=== PATIENT | male | born 1960 | race Caucasian/White ===

== ENCOUNTER 2017-11-18 06:58 | Emergency (ER) | payer OTHER ==
[~2017-11-18] VITALS: Ht 177.8 cm; Wt 82.1 kg
[2017-11-18 07:05] VITALS: TEMP 36.5; Ht 177.8 cm; Wt 82.1 kg
[2017-11-18] MEDS ORDERED: ALLO100T PO (07:28)
[2017-11-18] MEDS ORDERED: METO25TA3 PO (07:28)
[2017-11-18] MEDS ORDERED: ADVIN25/60 INH (07:28)
[2017-11-18] MEDS ORDERED: CLOP1TAB5 PO (07:28)
[2017-11-18] MEDS ORDERED: LPT10 PO (07:28)
[2017-11-18] MEDS ORDERED: TRAM-10 PO (07:28)
[2017-11-18] MEDS ORDERED: LISI-729 PO (07:28)
[2017-11-18] MEDS ORDERED: SPRIN/30 INH (07:28)
[2017-11-18] MEDS: ACETAMINOPHEN 500 MG TAB PO STA (07:37)
[2017-11-18] MEDS: KETOROLAC TROMETHAMINE 60 MG/2 ML VIAL IM STA (07:38)
--- NOTE | 2017-11-18 08:47 | DIAGNOSTIC IMAGING REPORT ---
CT OF THE HEAD WITHOUT CONTRAST CLINICAL HISTORY: YOU, neck/thoracic back/rib pain following trauma. COMPARISON STUDY: No previous studies for comparison. TECHNIQUE: Helical axial images of the head were obtained without IV contrast. Automated exposure control was utilized for the study. A dose lowering technique was utilized adhering to the principles of ALARA. FINDINGS: No acute intracranial hemorrhage, midline shift or mass effect is present. Ventricular system is normal. Basilar cisterns are patent. There are no extra-axial collections. White matter hypodensities are nonspecific but suggest small vessel disease. There is bilateral basal ganglia calcification. There is no calvarial fracture. Visualized portions of the sinuses and mastoid air cells are clear. Right nasal bone deformity is likely chronic. IMPRESSION: No acute intracranial findings. Electronically signed by: Duncan Collins M.D. 11/18/2017 8:46 AM Dictated Date/Time: 11/18/2017 8:43 AM
--- NOTE | 2017-11-18 08:48 | DIAGNOSTIC IMAGING REPORT ---
THORACIC SPINE WITHOUT CT DOSE: 1528.67 mGy.cm HISTORY: Pain YOU, neck/thoracic back/rib pain TECHNIQUE: Multiaxial CT images of the thoracic spine were performed and reformatted in the sagittal and coronal plane without the use of contrast. A dose lowering technique was utilized adhering to the principles of ALARA. COMPARISON: None. FINDINGS: No fractures. No subluxation. Paraspinal soft tissues are unremarkable. Moderate degenerative disc changes throughout. IMPRESSION: No fractures within the thoracic spine. Moderate degenerative disc change throughout. The above report was generated using voice recognition software. It may contain grammatical, syntax or spelling errors. Electronically signed by: King Toussaint M.D. 11/18/2017 8:47 AM Dictated Date/Time: 11/18/2017 8:45 AM
--- NOTE | 2017-11-18 08:56 | DIAGNOSTIC IMAGING REPORT ---
CERVICAL SPINE W/O CT DOSE: HISTORY: Trauma YOU, neck/thoracic back/rib pain TECHNIQUE: Multiaxial CT images of the cervical spine were performed and reformatted in the sagittal and coronal plane without the use of contrast. A dose lowering technique was utilized adhering to the principles of ALARA. COMPARISON: None. FINDINGS: Vertebral stature is unremarkable. Grade 1 anterolisthesis of C3 on C4. Maximum anterolisthesis of 3 mm. This appears to be secondary to considerable degenerative change of the posterior facets which is noted primarily on the left. There is considerable fragmentation of the left lateral facet at this site. The margins are sclerotic suggesting that this is degenerative in nature. Degenerative disc changes noted throughout considered most prominent from C4 through C7. Prevertebral soft tissues are unremarkable. IMPRESSION: 1. No acute bony abnormality. 2. Grade 1 anterolisthesis of C3 and C4 felt to be secondary to severe degenerative changes of posterior elements. 3. Degenerative change of the vertebral endplates and intervertebral discs throughout. The above report was generated using voice recognition software. It may contain grammatical, syntax or spelling errors. Electronically signed by: King Toussaint M.D. 11/18/2017 8:55 AM Dictated Date/Time: 11/18/2017 8:47 AM
--- NOTE | 2017-11-18 08:58 | DIAGNOSTIC IMAGING REPORT ---
CT OF THE CHEST WITHOUT IV CONTRAST CLINICAL HISTORY: YOU, neck/thoracic back/rib pain following trauma. COMPARISON STUDY: No previous studies for comparison. TECHNIQUE: Axial images of the chest were obtained without IV contrast. Images were reviewed in the axial, sagittal, and coronal planes. IV contrast was not administered for this examination. A dose lowering technique was utilized adhering to the principles of ALARA. FINDINGS: Evaluation of the chest is suboptimal on this unenhanced exam. There is no mediastinal hematoma. The heart is mildly enlarged. There is extensive coronary artery calcification. There are several calcified mediastinal and right hilar lymph nodes which indicate a prior granulomatous process. There are several calcified pulmonary nodule. There is no pneumothorax or pulmonary contusion. There are mild groundglass opacities within the lungs with suspected mild emphysema. Dependent airspace opacities favor atelectasis. There are numerous old bilateral rib fractures. No acute rib fractures are identified on this exam. The appendix is normal. Visualized portions of the upper abdomen are unremarkable on this unenhanced exam. There is a calcified granuloma within the spleen. Thoracic spine CT will be reported separately. IMPRESSION: 1. No acute traumatic findings within the chest on unenhanced exam. 2. Numerous old bilateral rib fractures. No pneumothorax. 3. Mild cardiomegaly and extensive coronary artery calcification. 4. Mild emphysema. 5. Evidence for a prior granulomatous process. Electronically signed by: Duncan Collins M.D. 11/18/2017 8:56 AM Dictated Date/Time: 11/18/2017 8:46 AM
[2017-11-18] MEDS ORDERED: OXYC1TAB3 PO (09:24)
[2017-11-18] MEDS ORDERED: AMOX875T PO (09:24)
[2017-11-18 09:40] VITALS: BP 128/95; PULSE 74; O2SAT 97
--- NOTE | 2017-11-18 15:15 | EMERGENCY ROOM VISIT NOTE ---
History First contact with patient: 07:09 Chief Complaint: BACK PAIN Stated Complaint: BACK AND NECK PAIN History of Present Illness The patient is a 57 year old male who presents to the Emergency Room with complaints of a headache, neck pain and thoracic back pain. The patient reports that at approximately 11 AM yesterday, he suffered a work-related injury when a pipe stand collapsed onto his back. The patient reports that he was bent over when the stand collapsed, and a large 40-50 pound pipe fell onto his back. The patient reports significant pain with deep breathing. He denies any chest pain or true shortness of breath. The patient does report a history of chronic neck and lower back pain, but has never had any problems with his middle back. The patient is currently under the management of the [facility], taking tramadol for chronic pain relief. The patient also reports a history of multiple left lower rib fractures that required resection because of poor healing. The patient currently denies any burning sensation, paresthesias or numbness of the upper extremities, torso or legs. He rates his discomfort an 8 out of 10. Review of Systems 10 system review was performed and was negative except for pertinent positives and negatives as indicated in history of present illness Past Medical/Surgical History Medical Problems: (1) Emphysema of lung (2) Gout (3) Hypertension (4) Myocardial infarction Surgical Problems: (1) History of arthroscopy of shoulder (2) History of resection of rib Family History FH: diabetes mellitus FH: heart disease FH: hypertension FH: lung disease Social History Smoking Status: Current Every Day Smoker Alcohol Use: none Drug Use: none Marital Status: single, in relationship Housing Status: lives with significant other Occupation Status: employed Current/Historical Medications Scheduled Allopurinol (Zyloprim), 200 MG PO DAILY Amoxicillin & Pot Clavulanate (Augmentin 875-125 mg), 1 TAB PO BID Atorvastatin (Lipitor), Unknown Dose PO DAILY Clopidogrel Bisulfate (Plavix), 75 MG PO DAILY Fluticasone Prop/Salmeterol (Advair Diskus 250/50 60 Dose), 1 PUFF INH BID Lisinopril (Zestril), 2.5 MG PO DAILY Metoprolol Succ (Toprol Xl) (Toprol-Xl), Unknown Dose PO DAILY Tiotropium [place] (Spiriva Handihaler), 1 CAP INH DAILY Scheduled PRN Oxycodone Ir (Roxicodone Ir), 1-2 TAB PO Q4H PRN for Pain Tramadol (Ultram), 50 MG PO Q8H PRN for Pain Physical Exam Vital Signs Date Time Temp Pulse Resp B/P (MAP) Pulse Ox O2 Delivery O2 Flow Rate FiO2 11/18/17 09:40 74 16 128/95 97 11/18/17 08:55 76 20 124/64 95 11/18/17 07:05 36.5 93 17 139/93 97 Room Air Physical Exam CONSTITUTIONAL: Healthy and well nourished. Alert and oriented X 3 with positive affect. Patient appears in moderate discomfort from pain. HEENT: Normocephalic, atraumatic. Pupils equal, round and reactive. No subconjunctival hemorrhage, epistaxis, hemotympanum, raccoon's eyes or gong sign. NECK: Patient has mild tenderness to palpation of the cervical musculature and central cervical spine. No palpable step-offs or spasms. RESPIRATORY: Clear to auscultation bilaterally with no wheezing, crackles, rhonchi or stridor. The breathing worsens the patient's back discomfort. CARDIOVASCULAR: Regular rate and rhythm with no murmurs, rubs or gallops. GASTROINTESTINAL: Bowel sounds present in all quadrants. Soft and nontender to palpation. MUSCULOSKELETAL: Examination shows generalized tenderness to palpation through the central thoracic spine and posterior ribs. No focal tenderness through the central lumbar spine or paraspinous muscles. No lateral or anterior rib discomfort noted. No tenderness to palpation of the costochondral joints. Patient has full range of motion of the shoulders and hips without discomfort. Distal pulses are intact. INTEGUMENTARY: No rash or other significant dermatologic conditions noted. NEUROLOGIC: Cranial nerves II-XII grossly intact. No focal neurologic deficits noted. Upper and lower extremities are sensory intact. Medical Decision & Procedures ER Provider Diagnostic Interpretation: Noncontrast CT of the head, cervical spine and thoracic spine did not show any intracranial bleed, fractures, subluxations or other acute findings. Noncontrast CT of the chest also does not show any acute findings. Chronic rib fractures are noted. Radiologist reports were also reviewed. Medications Administered Medications (Trade) Dose Ordered Sig/Dangelo Route Start Time Stop Time Status Last Admin Dose Admin Ketorolac Tromethamine (Toradol Inj) 60 mg NOW STAT IM 11/18/17 07:24 11/18/17 07:27 DC 11/18/17 07:38 60 MG Acetaminophen (Tylenol Tab) 1,000 mg NOW STAT PO 11/18/17 07:24 11/18/17 07:27 DC 11/18/17 07:37 1,000 MG ED Course Patient history and physical exam were performed. Nurse's notes were reviewed. Vital signs were reviewed. Patient has a marginally elevated blood pressure 139/93. He appears in moderate discomfort. The patient reports that he drove here himself. He was therefore administered IM Toradol and oral Tylenol for pain relief. Noncontrast CT of the head, cervical spine and thoracic spine were normal. Noncontrast CT of the chest did not show any acute rib findings. Chronic rib fractures are noted. The patient was encouraged to follow-up with his Worker's Compensation physician or approved orthopedic surgeon for further evaluation and management. The patient was provided a prescription for OxyIR 5 mg. He was also encouraged alternate ibuprofen and Tylenol for baseline pain relief. I specifically told the patient to call his pain clinic to advise them that he received a prescription for OxyIR from our emergency department. The patient voiced understanding, was happy with plan of care, and rated his discomfort a 4 out of 10 at the conclusion of my exam. Medical Decision [place] Drug Monitoring Program Search Results: patient reviewed within database, see additional documentation Blood Pressure Screening Patient's blood pressure: Normal blood pressure Impression Primary Impression: Contusion of thoracic wall Additional Impressions: Closed head injury Cervical strain, acute Work related injury Departure Information Prescriptions Amoxicillin & Pot Clavulanate (Augmentin 875-125 mg) 1 Tab Tab 1 TAB PO BID for 10 Days, #20 TAB Prov: Darshan Davila PA 11/18/17 Oxycodone Ir (Roxicodone Ir) 5 Mg Tab 1-2 TAB PO Q4H Y for Pain, #15 TAB For Initial Treatment Prov: Darshan Davila PA 11/18/17 Referrals No Doctor, Assigned (PCP) Patient Instructions [facility] Problem Qualifiers Primary Impression: Contusion of thoracic wall Encounter type: initial encounter Contusion of thoracic wall detail: back wall of thorax Laterality: unspecified laterality Qualified Codes: S20.229A - Contusion of unspecified back wall of thorax, initial encounter Additional Impressions: Closed head injury Encounter type: initial encounter Qualified Codes: S09.90XA - Unspecified injury of head, initial encounter Cervical strain, acute Encounter type: initial encounter Qualified Codes: S16.1XXA - Strain of muscle, fascia and tendon at neck level, initial encounter
== END 2017-11-18 09:43 | disposition home or self-care (01) ==
LOC: C.EDB 07:00 → C.EDA 09:43
DX: S20.229A Contusion of unspecified back wall of thorax, initial encounter (principal); S09.90XA Unspecified injury of head, initial encounter; S16.1XXA Strain of muscle, fascia and tendon at neck level, initial encounter; Y99.0 Civilian activity done for income or pay; W20.8XXA Other cause of strike by thrown, projected or falling object, initial encounter; M10.9 Gout, unspecified; I10 Essential (primary) hypertension; I25.2 Old myocardial infarction; J43.9 Emphysema, unspecified; Z83.3 Family history of diabetes mellitus; Z82.49 Family history of ischemic heart disease and other diseases of the circulatory system; F17.200 Nicotine dependence, unspecified, uncomplicated